=== PATIENT | female | born 1960 | race African-American/Black ===

== ENCOUNTER 2021-04-03 18:54 | Emergency (ER) | payer MEDICARE, MEDICAID ==
[~2021-04-03] VITALS: Ht 160 cm; Wt 99.0 kg
[~2021-04-03 18:54] MED LIST: ALBU17AE26; AMLO5TAB4; FLUO20CA33; PROT40
[2021-04-03] MEDS ORDERED: MAGNESIUM/ALUMINUM HYDROXIDE/SIMETHICONE 30ML UDC PO STA (21:17)
[2021-04-03] MEDS ORDERED: FAMOTIDINE 20MG TABLET PO ONE (21:30)
[2021-04-03 23:26] VITALS: BP 136/66
== END 2021-04-03 23:27 | disposition home or self-care (01) ==
LOC: ER 18:54
DX: K21.9 Gastro-esophageal reflux disease without esophagitis (principal); I10 Essential (primary) hypertension; F41.9 Anxiety disorder, unspecified; E78.00 Pure hypercholesterolemia, unspecified; F17.210 Nicotine dependence, cigarettes, uncomplicated; Z71.6 Tobacco abuse counseling; Z98.890 Other specified postprocedural states; Z88.2 Allergy status to sulfonamides
CPT/HCPCS: 71045; 99283